=== PATIENT | male | born 1950 | race Caucasian/White ===

== ENCOUNTER → 2018-05-27 | Emergency (ER) | payer MEDICARE | END | disposition left against medical advice (07) | LOC: ER 18:27 | DX: R53.1 Weakness (principal); Z53.21 Procedure and treatment not carried out due to patient leaving prior to being seen by health care provider ==

== ENCOUNTER → 2019-05-03 | Outpatient (CLI) | payer MEDICARE | LOC: LAB.O 08:10 | PROVIDERS: ATTEND Nurse Practitioner | DX: I10 Essential (primary) hypertension (principal); Z13.220 Encounter for screening for lipoid disorders ==

== ENCOUNTER 2019-11-20 11:14 | Emergency (ER) | payer MEDICARE ==
--- NOTE | 2019-11-20 11:19 | ED.PDOC ---
History of Present Illness - General Time Seen by Provider: 11/20/19 11:16 Source: patient - History of Present Illness Initial Comments: 69-year-old male with PMH of hypertension who presents with chief complaint of right ankle pain following injury which occurred at home around 3 AM this morning. Patient states he was rolling out of bed and he had blunt injury of the right ankle against something hard in the bedroom. Since then reports constant 3/10 severity throbbing pain to the lateral aspect of the ankle, no radiation, worsens with any weightbearing or walking. Denies any bruising/swelling/deformity. Denies any weakness or numbness. He took ibuprofen 800 mg this morning with little relief. Allergies/Adverse Reactions: Allergies Penicillins Allergy (Verified 11/20/19 11:22) Home Medications: Ambulatory Orders Acetaminophen W/ Codeine [Tylenol W/ CODEINE #3] 1 ea PO Q6H PRN 10 Days #10 11/20/19 Amlodipine Besylate 5 mg PO DAILY 11/20/19 Lisinopril 30 mg PO DAILY 11/20/19 Review of Systems - Review of Systems Review of Systems: 11/20/19 11:18 As per HPI All other Systems: Reviewed and Negative Past Medical History (General) - Patient Medical History Hx Cardiac Disorders: Yes Hx Congestive Heart Failure: No Hx Hypertension: Yes Hx Diabetes: No Hx MRSA: No - Vaccination History Hx Influenza Vaccination: No - Social History Hx Tobacco Use: Yes Family Medical History - Family History Father Family History: Unknown Living Status: Hx Family;Other: Leukemia Mother Age (years): 86 Living Status: Still Living Hx Family Hypertension: Yes Hx Family;Other: "nerve problems" Physical Exam - Physical Exam General Appearance: Alert, Comfortable, No apparent distress, Obese Eyes, Ears, Nose, Throat: normal ENT inspection Neck: non-tender, full range of motion, supple Cardiovascular/Respiratory: regular rate, rhythm, no M/R/G, normal peripheral pulses, no JVD, normal breath sounds, no respiratory distress Gastrointestinal/Abdominal: non-tender, no organomegaly Back: normal inspection Thigh/Hip: normal inspection, non-tender, no evidence of injury, normal ROM Leg: normal inspection, non-tender, no evidence of injury Knee: normal inspection, non-tender, no evidence of injury, normal ROM Ankle: normal inspection, soft tissue tenderness - Mild to right lower lateral ankle. No noted bruising/swelling/deformity. Range of motion of the right ankle moderately limited due to pain, especially with inversion of the ankle. Strength and sensation appear normal throughout. Foot: normal inspection, non-tender, no evidence of injury, normal ROM Neuro/Tendon: normal sensation, normal motor functions, normal tendon functions Mental Status: alert, oriented x 3 Skin: normal color, warm/dry Progress - Progress Progress: 11/20/19 11:19 Acute right ankle pain -Consider contusion versus ankle sprain most likely. Consider also ankle fracture versus other. -We will obtain x-ray imaging of the right ankle. Apply cold compress for pain relief. Pain is well controlled at this time. 11/20/19 12:22 -X-ray imaging of the right ankle reveals mildly displaced distal right fibular fracture. Discussed diagnosis with patient and treatment plan. We have plied a posterior lower leg splint with Ortho-Glass to the right lower extremity in the ED. He will need to be nonweightbearing on the right leg and follow-up with orthopedic surgery in the next week for further evaluation. I will send him home with a prescription of Tylenol 3 as needed for breakthrough pain. -Discharged home in good condition, return warnings discussed Tim Foster MD Billing #[id number] Procedures - Splinting Right Leg Hand-Made Type: orthoglass Splint: Posterior lower leg splint Pre-Proc Neuro Vasc Exam: normal Post-Proc Neuro Vasc Exam: normal Departure - Departure Clinical Impression: Fracture of fibula, distal, closed Qualifiers: Encounter type: initial encounter Fracture morphology: unspecified fracture morphology Laterality: right Qualified Code(s): S82.831A - Other fracture of upper and lower end of right fibula, initial encounter for closed fracture Time of Disposition: 12:24 Disposition: Discharge to Home or Self Care Condition: Good Instructions: Ankle Fracture (DC) Diet: resume usual diet Activity: other - No weightbearing to the right lower extremity until cleared by Ortho Referrals: Guera Feliciano MD [Primary Care Provider] - 1-2 Weeks Luis Oliva MD [Active Staff] - 1-5 Days Prescriptions: Acetaminophen W/ Codeine [Tylenol W/ CODEINE #3] 1 ea PO Q6H PRN 10 Days #10 PRN Reason: Pain Home Medications: Ambulatory Orders Acetaminophen W/ Codeine [Tylenol W/ CODEINE #3] 1 ea PO Q6H PRN 10 Days #10 11/20/19 Amlodipine Besylate 5 mg PO DAILY 11/20/19 Lisinopril 30 mg PO DAILY 11/20/19 Additional Instructions: Remain nonweightbearing to the right lower extremity until cleared by Ortho. Keep the splint in place until your orthopedic surgery clinic visit. Follow-up with orthopedic surgery in the clinic in the next 5 to 7 days for repeat evaluation. Return to the ED if you develop any concerning symptoms such as new onset weakness, numbness, rapidly worsening or severe pain, etc. Follow-up with your primary care physician as well as scheduled or sooner as needed.
--- NOTE | 2019-11-20 11:38 | RAD ---
EXAM: Ankle,Right 3 Views CLINICAL INDICATION: Right ankle pain COMPARISON: There is no previous study for comparison. FINDINGS: 3 views of the right ankle reveal a fracture of the distal fibula with 4 mm displacement. The ankle joint is in normal alignment. No other fracture or dislocation is seen. A small plantar calcaneal spur is noted. IMPRESSION: Mildly displaced fracture of the distal right fibula. Electronically signed by: Fitz Bailey MD 11/20/2019 11:37 AM CDT
[2019-11-20 19:30] VITALS: TEMP 98.2; O2SAT 95
[2019-11-20 19:33] VITALS: BP 113/81
== END 2019-11-20 13:01 | disposition home or self-care (01) ==
LOC: ER 11:14
DX: S82.831A Other fracture of upper and lower end of right fibula, initial encounter for closed fracture (principal); I10 Essential (primary) hypertension; I51.9 Heart disease, unspecified; Z79.899 Other long term (current) drug therapy; Z88.0 Allergy status to penicillin; W22.8XXA Striking against or struck by other objects, initial encounter; Y92.003 Bedroom of unspecified non-institutional (private) residence as the place of occurrence of the external cause; Y93.89 Activity, other specified

== ENCOUNTER → 2019-11-22 | Outpatient (CLI) | payer MEDICARE ==
--- NOTE | 2019-11-22 11:10 | RAD ---
EXAM DESCRIPTION: Ankle,Right 2 Views CLINICAL HISTORY: ANKLE PAIN RIGHT COMPARISON: November 20, 2019 IMPRESSION: 2 views of the right ankle again demonstrate a comminuted mildly displaced mostly spiral fracture of the right distal fibula at and above and below the level of the ankle mortise without significant interval change in positioning. No significant interval healing or periosteal reaction is seen. The ankle mortise appears maintained. No medial malleolar fracture. Moderate diffuse soft tissue swelling of the ankle is more prominent on the lateral malleolus. Osseous body in the region of the medial malleolus suggests remote prior trauma or accessory center of ossification. Moderate plantar and Achilles enthesophytes of the calcaneus are seen. Electronically signed by: Alon Tavares MD 11/22/2019 11:08 AM CDT
== END ==
LOC: RAD 09:13
PROVIDERS: ATTEND Orthopaedic Surgery
DX: S82.831D Other fracture of upper and lower end of right fibula, subsequent encounter for closed fracture with routine healing (principal); M77.31 Calcaneal spur, right foot; M89.9 Disorder of bone, unspecified; M79.9 Soft tissue disorder, unspecified

== ENCOUNTER → 2019-12-05 | Outpatient (CLI) | payer MEDICARE ==
--- NOTE | 2019-12-05 14:42 | RAD ---
EXAM DESCRIPTION: Ankle,Right 3 Views CLINICAL HISTORY: 69 years Male, CLOSED FX OF LATERAL MALLEOLUS COMPARISON: November 22, 2019 Findings: 3 view(s)/radiograph(s) Unchanged alignment of the comminuted distal fibular fracture. No significant interval healing. Slightly improved soft tissue swelling. The talar dome is unremarkable. Ankle mortise is relatively symmetric. No new fracture. Stable degenerative changes. IMPRESSION: Unchanged alignment of the comminuted distal right fibular fracture. No significant interval healing. Electronically signed by: Zan Snell MD 12/05/2019 2:40 PM CDT
== END ==
LOC: RAD 08:54
PROVIDERS: ATTEND Orthopaedic Surgery
DX: S82.61XD Displaced fracture of lateral malleolus of right fibula, subsequent encounter for closed fracture with routine healing (principal)

== ENCOUNTER → 2019-12-12 | Outpatient (CLI) | payer MEDICARE ==
--- NOTE | 2019-12-12 14:23 | RAD ---
EXAM DESCRIPTION: Ankle,Right 3 Views CLINICAL HISTORY: 69 years, Male, DISPLACED FRACTURE OF LATERAL MALLEOLUS OF RIGHT TIBI COMPARISON: None. TECHNIQUE: AP/lateral/oblique of the right ankle FINDINGS: Comminuted fracture of the lateral malleolus extends into the ankle joint. There is minimal periosteal new bone formation or bridging callus slightly increased since previous study December 05, 2019 consistent with early changes of healing. There is moderate soft tissue swelling laterally. Mild spurring at the tips of the medial and lateral malleolar line. Intact proximal metatarsals. Intact dome of the talus. Lateral view shows no evidence of fracture of the body of the talus or calcaneus. Prominent dorsal and plantar calcaneal spurring is seen. IMPRESSION: Comminuted fracture of the distal right fibula with early changes of healing. Electronically signed by: Don Gomes MD 12/12/2019 2:21 PM CDT
== END ==
LOC: RAD 10:05
PROVIDERS: ATTEND Orthopaedic Surgery
DX: S82.61XD Displaced fracture of lateral malleolus of right fibula, subsequent encounter for closed fracture with routine healing (principal)

== ENCOUNTER → 2019-12-26 | Outpatient (CLI) | payer MEDICARE ==
--- NOTE | 2019-12-26 13:15 | RAD ---
EXAM: Ankle,Right 3 Views CLINICAL HISTORY: CLOSED FRACTURE OF LATERAL MALLEOLUS RIGHT. TECHNIQUE: AP, lateral and oblique images. COMPARISON STUDY: December 05, 2019 FINDINGS: A comminuted oblique oriented fracture extending through the right distal fibula is in similar alignment to the previous study. Periosteal new bone formation is noted. There is no new fracture. Heel spurs are unchanged. Chronic changes of the medial malleolus are stable. IMPRESSION: Healing right distal fibular fracture in stable alignment. Electronically signed by: Ward Benitez MD 12/26/2019 1:13 PM CDT
== END | disposition home or self-care (01) ==
LOC: RAD 08:52
PROVIDERS: ATTEND Orthopaedic Surgery
DX: S82.64XD Nondisplaced fracture of lateral malleolus of right fibula, subsequent encounter for closed fracture with routine healing (principal)

== ENCOUNTER → 2020-01-12 | Outpatient (CLI) | payer MEDICARE ==
--- NOTE | 2020-01-12 16:34 | RAD ---
EXAM DESCRIPTION: Ankle,Right 3 Views CLINICAL HISTORY: 69 years, Male, CLOSED FRACTURE OF LATERAL MALLEOLUS COMPARISON: Previous x-ray right ankle December 26, 2019 TECHNIQUE: AP/lateral/oblique of the Right or left ankle FINDINGS: Oblique fracture through the distal right fibula extends into the lateral ankle joint. Periosteal new bone formation is seen laterally. There is soft tissue swelling overlying the lateral malleolus. No change in alignment of the fragments is evident comparing to the previous study. Wide medial ankle space suggests deltoid ligament injury. Spurring at the medial malleolus. Spurring at the tip of the lateral malleolus. Intact tibial plateau. Lateral view shows intact talus and calcaneus. Prominent dorsal and plantar calcaneal spurs. IMPRESSION: Distal right fibular fracture with periosteal new bone formation consistent with partial healing. Electronically signed by: Don Gomes MD 01/12/2020 4:32 PM CDT
== END ==
LOC: RAD 08:24
PROVIDERS: ATTEND Orthopaedic Surgery
DX: S82.64XD Nondisplaced fracture of lateral malleolus of right fibula, subsequent encounter for closed fracture with routine healing (principal)

== ENCOUNTER → 2020-02-10 | Outpatient (CLI) | payer MEDICARE ==
--- NOTE | 2020-02-11 08:40 | RAD ---
EXAM DESCRIPTION: Ankle,Right 3 Views CLINICAL HISTORY: 69 years Male, FRACTURE OF LATERAL MALLEOLUS COMPARISON: January 12, 2020 Findings: 3 view(s)/radiograph(s) Healing distal right fibular fracture. Similar alignment. No new fracture. No dislocation. Similar degenerative changes. IMPRESSION: Healing distal right fibular fracture. Electronically signed by: Zan Snell MD 02/11/2020 8:38 AM CDT
== END ==
LOC: RAD 08:52
PROVIDERS: ATTEND Orthopaedic Surgery
DX: S82.61XD Displaced fracture of lateral malleolus of right fibula, subsequent encounter for closed fracture with routine healing (principal)

== ENCOUNTER → 2020-02-23 | Outpatient (CLI) | payer MEDICARE ==
--- NOTE | 2020-02-24 08:53 | RAD ---
Study: Three views of the Right Ankle. Indication: CLOSED FRACTURE OF LATERAL MALLEOLUS Comparison: February 10, 2020 Impression: Previous noted comminuted and segmental distal fibular fracture redemonstrated with stable alignment. The fracture remains largely ununited without significant progressive union. Marked spurring of the inferior margin medial malleolus. Prior medial malleolar fracture may have occurred as well. Multifocal well-corticated ossification inferior to the medial malleolus and lateral malleolus indicating prior sprains. Soft tissue swelling about the ankle. Scattered degenerative changes about the ankle and foot appear stable. Calcaneal spurring at the Achilles tendon insertion and plantar fascia origin. Electronically signed by: Yusuf Foster MD 02/24/2020 8:51 AM CDT
== END ==
LOC: RAD 09:59
PROVIDERS: ATTEND Orthopaedic Surgery
DX: S82.64XK Nondisplaced fracture of lateral malleolus of right fibula, subsequent encounter for closed fracture with nonunion (principal); M77.31 Calcaneal spur, right foot; M79.9 Soft tissue disorder, unspecified; M19.071 Primary osteoarthritis, right ankle and foot; M89.8X7 Other specified disorders of bone, ankle and foot

== ENCOUNTER → 2020-03-27 | Outpatient (CLI) | payer MEDICARE ==
--- NOTE | 2020-03-27 10:13 | RAD ---
EXAM DESCRIPTION: Ankle,Right 3 Views CLINICAL HISTORY: 69 years Male, CLOSED FX OF LATER MALLEOLUS COMPARISON: 02/23/2020 Findings: 3 view(s)/radiograph(s) Unchanged alignment of the comminuted spiral distal right fibular fracture. No solid osseous bridging. No interval healing. Similar soft tissue swelling. No new fracture identified. The talar dome is unremarkable. The ankle mortise is symmetric. Similar degenerative changes. No dislocation. IMPRESSION: Similar distal right fibular fracture. Electronically signed by: Zan Snell MD 03/27/2020 10:11 AM [facility]
== END ==
LOC: RAD 07:59
PROVIDERS: ATTEND Orthopaedic Surgery
DX: S82.64XD Nondisplaced fracture of lateral malleolus of right fibula, subsequent encounter for closed fracture with routine healing (principal)